=== PATIENT | male | born 1995 | race Caucasian/White ===

== ENCOUNTER 2020-02-01 13:16 | Emergency (ER) | payer OTHER ==
[~2020-02-01] VITALS: Ht 172.7 cm; Wt 95.2 kg
[~2020-02-01 13:16] MED LIST: ACETAMINOPHEN500 MG PO; KETO10 PO
[2020-02-01] MEDS ORDERED: NAPR550 PO (15:56)
== END 2020-02-01 16:14 | disposition home or self-care (01) ==
LOC: ER 13:16
DX: R07.9 Chest pain, unspecified (principal)
CPT/HCPCS: 93005; 93010; 99284-25